=== PATIENT | female | born 1995 ===

== ENCOUNTER 2020-05-15 05:48 | Emergency (ER) | payer OTHER, SELFPAY ==
--- NOTE | 2020-05-15 05:53 | ED.LOWEXIN ---
HPI - Extremity Injury (Lower) General Chief Complaint: Extremity Injury, Lower Stated Complaint: Hurt right Ankle Time Seen by Provider: 05/15/20 05:52 Source: patient Mode of arrival: Wheelchair Limitations: no limitations History of Present Illness HPI Narrative: 24-year-old female nonsmoker with noncontributory medical history presents with a chief complaint of pain and swelling in her right foot and ankle since an injury yesterday afternoon. She states that she had been sitting on the couch for some time and her foot went to sleep. Upon standing, she could not feel her foot so she inverted her ankle and now has pain with ambulation. She states she has significant improvement with rest. She denies any knee or hip pain. She denies any ongoing numbness, tingling or weakness. She has no head, neck or back pain. She denies any history of foot or ankle pain. MD complaint: ankle injury and foot injury Onset (ago): hour(s) Type of Injury: inversion Place: home Severity: moderate Relieving factors: rest Exacerbating factors: weight bearing, movement and palpation Context: walking Associated symptoms: able to partially bear weight Other symptoms: none Related Data Allergies Allergy/AdvReac Type Severity Reaction Status Date / Time No Known Drug Allergies Allergy Verified 05/15/20 06:25 Review of Systems Constitutional Constitutional: Denies chills, Denies fatigue, Denies fever(s), Denies frequent falls, Denies lethargy and Denies weakness Eyes Eyes: Denies change in vision, Denies eye discharge, Denies irritation and Denies loss of vision ENT Ears, Nose, Mouth, and Throat: Denies change in voice, Denies dizziness, Denies neck pain, Denies sore throat and Denies throat swelling Cardiovascular Cardiovascular: Denies chest pain, Denies irregular heart rhythm, Denies lightheadedness, Denies palpitations, Denies dyspnea, Denies dyspnea on exertion and Denies orthopnea Respiratory Respiratory: Denies cough, Denies dyspnea, Denies dyspnea on exertion and Denies wheezing Gastrointestinal Gastrointestinal: Denies abdominal pain, Denies change in bowel habits, Denies diarrhea, Denies nausea and Denies vomiting Musculoskeletal Musculoskeletal: Reports arthralgias, Reports joint swelling, Reports limited range of motion, Denies neck pain and Denies numbness Integumentary/Breasts Skin/Breast: Denies pruritus, Denies erythema, Denies rash and Denies wounds Neurologic Neurologic: Denies behavioral changes, Denies confusion, Denies dizziness, Denies frequent falls, Denies loss of vision, Denies numbness and Denies weakness Psychiatric Psychiatric: Denies anxiety, Denies behavioral changes, Denies confusion, Denies depression, Denies homicidal ideation and Denies suicidal ideation Endocrine Endocrine: Denies fatigue, Denies flushing and Denies palpitations Hematologic/Lymphatic Hematologic/Lymphatic: Denies easy bruising Allergic/Immunologic Allergic/Immunologic: Denies urticaria, Denies throat swelling and Denies wheezing Patient History Social History Smoking Status: Never smoker Smoking Status: Never smoker alcohol intake frequency: 0-2 drinks per day Substance Use Type: does not use Exam Narrative Exam Narrative: GEN: AOx3 and in mild distress EYES: Pupils are equal, round, and reactive to light and accommodation. Extraoccular muscles are intact bilaterally. There is no subconjunctival hemorrhage or exudate. CHEST: Lungs are clear to auscultation bilaterally and free of wheezes, rales, or rhonchi. Heart rate is regular rhythm, there are no murmurs, clicks, rubs, or gallops. There is no chest wall tenderness. ABD: Abdomen is soft and nontender. There is no guarding or rebound. Bowel sounds are normal in all 4 quadrants. There is no mass or organomegaly. EXT: Decreased range of motion secondary to pain of right ankle, no obvious deformity, closed, isolated and neurovascular intact. Pain overlying anterior ankle the and tarsals, no significant pain overlying medial or lateral malleolus. No pain with squeeze test, no pain with palpation or range of motion at the knee. SKIN: Warm, pink, and dry. No erythema or rash Initial Vital Signs Initial Vital Signs: Vital Signs Temperature 98.6 F 05/15/20 05:59 Pulse Rate 80 05/15/20 05:59 Respiratory Rate 17 05/15/20 05:59 Blood Pressure 111/70 05/15/20 05:59 Pulse Oximetry 100 05/15/20 05:59 Procedures Orthopedic Splinting/Casting Injury #1: Side: right Lower Extremity Injury Location: ankle Lower Extremity Immobilizer: [employer] Other Orthopedic Equipment: crutches Post splinting neuro exam: intact Post splinting vascular exam: intact Placed by: Nursing Course Orders Ordered: ED Orders 05/15/20 05:56 XR ankle RT min 3V Stat XR foot RT min 3V Stat Discontinued Medications Ibuprofen (Ibuprofen 400 Mg Tablet) 800 mg PO NOW ONE Stop: 05/15/20 06:09 Last Admin: 05/15/20 06:11 Dose: 800 mg Documented by: Reevaluation(s) Reevaluation #1: Patient states she is starting to feel a bit better even prior to getting some Motrin Vital Signs Vital signs: Vital Signs - 8 hr 05/15/20 05:59 Temperature 98.6 F Pulse Rate 80 Respiratory Rate 17 Blood Pressure 111/70 Pulse Oximetry 100 MDM - Extremity Injury (Lower) Imaging Data Extremity x-ray #1: Attestation: I personally reviewed and interpreted this imaging study as follows: My Impression: NAP Radiologist's Impression: Foot Xray Ankle Xray NAP Discharge Plan Departure Patient Disposition: Home Clinical Impression: Ankle sprain and strain Instructions: Ankle Sprain, DI for Ankle Pain Activity Restrictions/Additional Instructions: *You have been diagnosed with [right ankle sprain, x-rays do not show any obvious fracture or dislocation] *What to do: *Take medications as directed: Tylenol and/or Motrin for pain *Follow up with your primary care provider in 2-3 days, call for an appointment. Let them know you were seen in the Emergency Department and that we ask that you be seen in follow up * weight-bearing as tolerated *Return to ER if you should have any new, worsening or concerning symptoms, such as [increasing pain, numbness, tingling, weakness] Radiographic study has been interpreted by an emergency physician. The official diagnosis by radiology will be performed within the next 24 hours and should there be any change in outcome we will notify you of how to proceed.
--- NOTE | 2020-05-15 05:56 | DI.RAD.S_ITS ---
PROCEDURE: XR ANKLE RT MIN 3V INDICATIONS: inversion injury, pain, swelling TECHNIQUE: 3 views of the ankle were acquired. COMPARISON: None. FINDINGS: Bones: No fractures or dislocations. Ankle mortise is normally aligned. No suspicious bony lesions. Soft tissues: No tibiotalar joint effusion. Achilles tendon appears normal. IMPRESSION: No acute bony abnormality. Dictated by: Cesar Delatorre M.D. on 05/15/2020 at 7:52 Approved by: Cesar Delatorre M.D. on 05/15/2020 at 7:54
--- NOTE | 2020-05-15 05:56 | DI.RAD.S_ITS ---
PROCEDURE: XR FOOT RT MIN 3V INDICATIONS: injury with lateral foot swelling, pain TECHNIQUE: 3 views of the foot were acquired. COMPARISON: None. FINDINGS: Bones: No fractures or dislocations. No suspicious bony lesions. Soft tissues: No tibiotalar joint effusion. Achilles tendon appears normal. IMPRESSION: No acute bony abnormality. If there is concern of midfoot pain/Lisfranc injury, weight-bearing x-rays of the foot may be of further value. Dictated by: Cesar Delatorre M.D. on 05/15/2020 at 7:54 Approved by: Cesar Delatorre M.D. on 05/15/2020 at 7:55
[2020-05-15 05:59] VITALS: BP 111/70; PULSE 80; RESP 17; TEMP 37; O2SAT 100; BMI 22.1
[2020-05-15] MEDS: IBUPROFEN 400 MG TABLET 800 MG PO (06:11)
== END 2020-05-15 06:30 | disposition home or self-care (01) ==
PROVIDERS: Emergency Provider Emergency Medicine
DX: S93.401A Sprain of unspecified ligament of right ankle, initial encounter (principal); S96.911A Strain of unspecified muscle and tendon at ankle and foot level, right foot, initial encounter; W18.30XA Fall on same level, unspecified, initial encounter
CPT/HCPCS: 73610; 73630; 99283; 99284